=== PATIENT | female | born 1930 | race Caucasian/White ===

== ENCOUNTER 2016-06-25 08:42 | Outpatient (CLI) | payer OTHER ==
--- NOTE | 2016-06-25 10:23 | DIAGNOSTIC IMAGING REPORT ---
PROCEDURE: US ABDOMEN ULTRASOUND-COMPLETE INDICATION: ABD CRAMPS, initial encounter TECHNIQUE: [place] scale and color Doppler sonographic images of the abdomen were obtained. COMPARISON: CT abdomen/pelvis 04/21/2015 FINDINGS: Liver measures 14.4 cm with coarse echo structure. No focal mass or ascites. Body of the pancreas is unremarkable. Pancreatic head and tail are obscured. Normal spleen. Cholecystectomy. CBD measures 1.5 cm. No dilated intrahepatic ducts. Aorta and IVC are patent. Normal hepatopetal flow. Kidneys have a lobulated contour suggestive of lobulation. Normal right kidney measures 10.5 cm. Left kidney measures 11.6 cm with 1.1 cm upper pole cyst. IMPRESSION: 1. Coarse liver echo structure which may represent steatosis versus intrinsic liver disease 2. Cholecystectomy. CBD measures 1.5 cm, probably secondary to cholecystectomy. Correlate with LFTs. 3. Left renal cyst
== END 2016-06-25 23:00 ==
LOC: US SRH 08:42
DX: R10.9 Unspecified abdominal pain (principal); N28.1 Cyst of kidney, acquired; Z90.49 Acquired absence of other specified parts of digestive tract

== ENCOUNTER 2017-01-01 10:27 | Outpatient (CLI) | payer OTHER ==
--- NOTE | 2017-01-01 11:02 | DIAGNOSTIC IMAGING REPORT ---
PROCEDURE: CT HEAD WITHOUT CONTRAST INDICATION: MYOCLONIC JERK,RT ARM PAIN TECHNIQUE: Axial CT images were acquired through the head. Coronal and sagittal reformations were created. COMPARISON: None. FINDINGS: Mild cerebral cortical atrophy. Mild hypodensity in the periventricular and subcortical white matter. No intracranial hemorrhage or extraaxial fluid collections. Ventricles are normal in size, shape and position. There is no mass, mass effect or midline shift. The [place]-white matter differentiation is normal. The calvarium is intact. The paranasal sinuses and mastoid air cells are normally aerated. The extracranial soft tissues and orbits are normal. IMPRESSION: 1. No CT evidence of acute intracranial process. 2. Age related involutional and white matter changes. All CT scans at this facility use dose modulation, iterative reconstruction, and/or weight-based dosing when appropriate to reduce radiation dose to as low as reasonably achievable.
== END 2017-01-01 23:00 ==
LOC: CT SRH 10:27
DX: G25.3 Myoclonus (principal); M79.601 Pain in right arm